=== PATIENT | female | born 1995 | race Caucasian/White ===

== ENCOUNTER 2023-12-28 20:07 | Emergency (ER) | payer MEDICAID ==
[~2023-12-28] VITALS: Ht 162.6 cm; Wt 87.1 kg
[2023-12-28 20:35] VITALS: BP 106/62; TEMP 98.3; O2SAT 99
[2023-12-28] MEDS ORDERED: METR-147 PO (20:47)
[2023-12-28] MEDS ORDERED: CEFU500T66 PO (20:47)
[2023-12-28] MEDS ORDERED: TDAP [DIPH/PERTUSSIS/TET] 0.5 ML VIAL IM ONE (20:50)
[2023-12-28] MEDS: TDAP [DIPH/PERTUSSIS/TET] 0.5 ML VIAL IM ONE (20:55)
== END 2023-12-28 21:00 | disposition home or self-care (01) ==
LOC: ER 20:17
DX: S71.131A Puncture wound without foreign body, right thigh, initial encounter (principal); Z79.899 Other long term (current) drug therapy; Z59.00 Homelessness unspecified; Z88.0 Allergy status to penicillin; W54.0XXA Bitten by dog, initial encounter; Y93.89 Activity, other specified; Y92.89 Other specified places as the place of occurrence of the external cause; Y99.8 Other external cause status
CPT/HCPCS: 90715